=== PATIENT | male | born 1990 | race Caucasian/White ===

== ENCOUNTER 2023-03-18 18:10 | Emergency (ER) | payer OTHER ==
[~2023-03-18] VITALS: Ht 182.9 cm; Wt 82.0 kg
[2023-03-18 18:17] VITALS: O2SAT 97
[2023-03-18] MEDS ORDERED: ASPIRIN 81MG TABLET PO ONE (18:30)
[2023-03-18 18:58] LABS: BASOPHILS % 0.7 % (0.0-2.0); DIFFERENTIAL COMMENT 0; LYMPHOCYTES % 20.7 % (20.0-50.0); MEAN CORPUSCULAR HEMOGLOBIN 26.1 pg (28.0-32.0); MEAN CORPUSCULAR HGB CONC 33.3 g/dL (31.0-37.0); MEAN CORPUSCULAR VOLUME 78.3 fL (80.0-94.0); MEAN PLATELET VOLUME 7.6 fl (7.4-10.4); MONOCYTES % 7.2 % (2.0-8.0); NEUTROPHILS % 69.4 % (40.0-76.0); PLATELET 353 x1000/uL (130-400); RED BLOOD CELL COUNT 4.98 mill/uL (4.7-6.1); RED CELL DISTRIBUTION WIDTH 13.5 % (11.6-14.6); WHITE BLOOD COUNT 13.6 x1000/uL (4.5-11.0)
[2023-03-18 19:03] LABS: CHLORIDE 106 mEq/L (98-107); INDEX HEMOLYSI 1 (1-3); INDEX ICTERIC 1 (1-4); INDEX LIPEMIC 1 (1-3); POTASSIUM 3.9 mEq/L (3.5-5.1); SODIUM 140 mEq/L (136-145)
[2023-03-18 19:08] VITALS: BP 140/89; PULSE 100; RESP 18; TEMP 99.1
[2023-03-18 19:14] LABS: ALANINE AMINOTRANSFERASE 37 IU/L (13-61); ALBUMIN 3.7 g/dL (3.4-5.0); ASPARTATE AMINOTRANSFERASE 20 IU/L (15-37); BILIRUBIN TOTAL 0.7 mg/dL (0.1-1.0); CALCIUM 8.6 mg/dL (8.5-10.1); CARBON DIOXIDE 27 mEq/L (21-32); CREATININE 1.1 mg/dL (0.6-1.3); GLUCOSE 90 mg/dL (70-105); PROTEIN TOTAL 7.2 g/dL (6.0-8.3); TROPONIN I HIGH SENSITIVITY 8 ng/L (<78); UREA NITROGEN BLOOD 11 mg/dL (7-21)
== END 2023-03-18 20:33 | disposition home or self-care (01) ==
LOC: ER 18:10
DX: I47.10 Supraventricular tachycardia, unspecified (principal); R00.2 Palpitations; R06.02 Shortness of breath
CPT/HCPCS: 80053; 85025; 84484; 36415; 71045; 93005; 99285; Z7610